=== PATIENT | male | born 1975 | race Two or more races ===

== ENCOUNTER 2017-08-22 19:09 | Emergency (ER) | payer SELFPAY ==
[2017-08-22 19:15] VITALS: BP 155/92; PULSE 93; RESP 20; TEMP 98.1; O2SAT 95
--- NOTE | 2017-08-22 20:19 | ED PDOC ---
HPI: General Adult Time Seen by Provider: 08/22/17 19:46 Chief Complaint (Nursing): Medical Clearance Chief Complaint (Provider): Medical Clearance History Per: Patient History/Exam Limitations: no limitations Onset/Duration Of Symptoms: Mins (just prior to arrival) Additional Complaint(s): 42 y/o male, brought in by PD, presents to the ED for a medical and psych clearance for incarceration, onset of just prior to arrival. He denies any complaints, past medical or surgical history. Past Medical History Reviewed: Historical Data, Nursing Documentation, Vital Signs Vital Signs: Last Vital Signs Temp 98.1 F 08/22/17 19:10 Pulse 93 H 08/22/17 19:10 Resp 20 08/22/17 19:10 BP 155/92 H 08/22/17 19:10 Pulse Ox 95 08/22/17 20:24 - Medical History PMH: No Chronic Diseases - Surgical History Surgical History: No Surg Hx - Family History Family History: States: Unknown Family Hx - Social History Current smoker - smoking cessation education provided: No Ex-Smoker (has not smoked in the last 12 months): No Alcohol: None Drugs: Denies - Allergies Allergies/Adverse Reactions: Allergies Allergy/AdvReac Type Severity Reaction Status Date / Time No Known Allergies Allergy Verified 08/22/17 19:10 Review of Systems ROS Statement: Except As Marked, All Systems Reviewed And Found Negative Constitutional: Negative for: Fever Psych: Negative for: Suicidal ideation Physical Exam - Reviewed Nursing Documentation Reviewed: Yes Vital Signs Reviewed: Yes - Physical Exam Appears: Positive for: Non-toxic, No Acute Distress Head Exam: Positive for: ATRAUMATIC Skin: Positive for: Normal Color, Warm Eye Exam: Positive for: Normal appearance, EOMI, PERRL Cardiovascular/Chest: Positive for: Regular Rate, Rhythm Back: Positive for: Normal Inspection Extremity: Positive for: Normal ROM. Negative for: Pedal Edema, Deformity Neurologic/Psych: Positive for: Alert, Oriented. Negative for: Motor/Sensory Deficits - ECG O2 Sat by Pulse Oximetry: 95 (RA) Pulse Ox Interpretation: Normal Medical Decision Making Medical Decision Making: Time: --19:46 Impression: --Medical and Psych Clearance for Incarceration Plan: --Crisis Eval Reassess --20:21 Patient has been seen and cleared by crisis for discharge to law enforcement. Diagnosis from [facility]: Adjustment Disorder Scribe Attestation: Documented by Ellis Mejia acting as a scribe for Cassidy Mcfarland MD. Provider Attestation: All medical record entries made by the Scribe were at my direction and personally dictated by me. I have reviewed the chart and agree that the record accurately reflects my personal performance of the history, physical exam, medical decision making, and the department course for this patient. I have also personally directed, reviewed, and agree with the discharge instructions and disposition. Disposition - Clinical Impression Clinical Impression: Adjustment disorder - Patient ED Disposition Is Patient to be Admitted: No Discussed With Dr.: Mario Elkins - Disposition Referrals: [facility] [Outside] Disposition: Discharged/Transfer to Law Enforcement Disposition Time: 20:21 Condition: STABLE Additional Instructions: Patient is medically and psychiatrically cleared for incarceration. Forms: [employer] ([place])
== END 2017-08-22 21:00 ==
LOC: H.ER 19:09
DX: F43.20 Adjustment disorder, unspecified